=== PATIENT | female | born 1990 | race African-American/Black ===

== ENCOUNTER 2016-08-15 18:42 | Emergency (ER) | payer OTHER ==
[2016-08-15] MEDS ORDERED: HYDROmorphone 1 MG/ML SYRINGE IVP STA (19:50)
[2016-08-15] MEDS ORDERED: HYDROmorphone 1 MG/ML SYRINGE ONE (21:05)
[2016-08-15] MEDS ORDERED: IOPAMIDOL-300 100 ML VIAL IVP ONE (21:17)
== END 2016-08-15 22:22 | disposition home or self-care (01) ==
DX: R10.2 Pelvic and perineal pain (principal); Z97.5 Presence of (intrauterine) contraceptive device; Z86.711 Personal history of pulmonary embolism; Z79.01 Long term (current) use of anticoagulants
CPT/HCPCS: 36415; 74177; 80053; 83690; 85025; 85610; 96374; 99283; 99284; J1170; Q9967

== ENCOUNTER 2017-01-20 10:41 | Emergency (ER) | payer OTHER ==
--- NOTE | 2017-01-20 11:50 | ED Physician Documentation ---
PD HPI GI BLEED - Stated complaint Stated Complaint: BLOOD IN STOOL - Chief complaint Chief Complaint: Abd Pain - History obtained from History obtained from: Patient - History of Present Illness Timing - onset: Last night Timing - duration: Days (1/2) Timing - details: Abrupt onset Associated symptoms: BRBPR (noted some diarrhea few times, then had some traces of blood and mucous in stool last few times. Cramping abd pain intermittently.) , Diarrhea. No: Vomiting Contributing factors: No: Sick contact, Bad food, Travel, Recent antibiotics, NSAID use Improved by: No: Eating, Position Worsened by: Eating (made her more nauseated). No: Position, Palpation Similar symptoms before: Has not had sx before Recently seen: Not recently seen Review of Systems Constitutional: denies: Fever, Chills Nose: denies: Rhinorrhea / runny nose, Congestion Throat: denies: Sore throat Respiratory: denies: Cough GI: reports: Abdominal Pain (intermittent cramping), Nausea, Diarrhea, Bloody / black stool. denies: Vomiting, Constipation : denies: Dysuria, Frequency, Discharge Skin: denies: Rash, Lesions Neurologic: reports: Generalized weakness. denies: Near syncope PD PAST MEDICAL HISTORY - Past Medical History Cardiovascular: Pulmonary embolism (when on control. Not any continued anticoagulants) Respiratory: Asthma, Other Neuro: None Endocrine/Autoimmune: None GI: None : Chronic bladder infection HEENT: None Psych: Anxiety Musculoskeletal: None Derm: Eczema - Past Surgical History Past Surgical History: Yes General: Other - Present Medications Home Medications: Ambulatory Orders Medication Instructions Recorded Confirmed Diphenoxylate/Atropine [Lomotil] 1 each PO QID PRN #15 tablet 01/20/17 Ondansetron Odt [Zofran] 4 mg TL Q6H PRN #15 tablet 01/20/17 Tramadol HCl 50 mg PO Q6H PRN #15 tablet 01/20/17 - Allergies Allergies/Adverse Reactions: Allergies Allergy/AdvReac Type Severity Reaction Status Date / Time Sulfa (Sulfonamide Allergy Hives Verified 02/15/16 03:15 Antibiotics) morphine AdvReac Hives Verified 02/15/16 03:15 - Social History Does the pt smoke?: No Smoking Status: Never smoker Does the pt drink ETOH?: Yes Does the pt have substance abuse?: No - Family History Family history: reports: Non contributory - Immunizations Immunizations are current?: No - POLST Patient has POLST: No PD ED PE NORMAL - Vitals Vital signs reviewed: Yes - General General: Alert and oriented X 3, No acute distress, Well developed/nourished - HEENT HEENT: PERRL (nonicteric), Pharynx benign - Neck Neck: Supple, no meningeal sign, No adenopathy - Cardiac Cardiac: RRR, No murmur - Respiratory Respiratory: Clear bilaterally - Abdomen Abdomen: Soft, Non tender, Non distended, No organomegaly. No: Normal bowel sounds (increased) - Female Female : Deferred - Rectal Rectal: Deferred - Back Back: No CVA TTP - Derm Derm: Normal color, Warm and dry - Extremities Extremities: No tenderness to palpate, Normal ROM s pain, No edema, No calf tenderness / cord - Neuro Neuro: Alert and oriented X 3, No motor deficit, Normal speech Results - Vitals Vitals: Vital Signs - 24 hr 01/20/17 01/20/17 01/20/17 10:46 12:47 13:33 Temperature 36.4 C L Heart Rate 87 63 62 Respiratory 20 16 16 Rate Blood Pressure 130/86 H 113/71 118/74 O2 Saturation 98 98 100 Oxygen O2 Source Room air - Labs Labs: Laboratory Tests 01/20/17 01/20/17 01/20/17 11:30 11:30 11:30 WBC 9.4 RBC 4.88 Hgb 15.0 Hct 43.3 MCV 88.7 MCH 30.8 MCHC 34.7 RDW 13.3 Plt Count 225 MPV 8.5 Neut # 6.8 H Lymph # 1.9 [place]imer # 0.5 Eos # 0.1 Baso # 0.0 Absolute Nucleated RBC 0.01 Nucleated RBCs 0.1 ESR 12 Sodium 135 Potassium 4.2 Chloride 101 Carbon Dioxide 26 Anion Gap 8.0 BUN 9 Creatinine 0.7 Estimated GFR (MDRD) 125 Glucose 96 Lactic Acid Calcium 9.8 Total Bilirubin 1.0 AST 22 ALT 21 Alkaline Phosphatase 68 Total Protein 8.3 H Albumin 4.3 Globulin 4.0 Albumin/Globulin Ratio 1.1 Lipase 19 L Urine Color Urine Clarity Urine pH Ur Specific [place] Urine Protein Urine Glucose (UA) Urine Ketones Urine Occult Blood Urine Nitrite Urine Bilirubin Urine Urobilinogen Ur Leukocyte Esterase Ur Microscopic Review Urine Culture Comments Urine HCG, Qual 01/20/17 01/20/17 01/20/17 12:14 12:14 12:30 WBC RBC Hgb Hct MCV MCH MCHC RDW Plt Count MPV Neut # Lymph # [place] # Eos # Baso # Absolute Nucleated RBC Nucleated RBCs ESR Sodium Potassium Chloride Carbon Dioxide Anion Gap BUN Creatinine Estimated GFR (MDRD) Glucose Lactic Acid 0.7 Calcium Total Bilirubin AST ALT Alkaline Phosphatase Total Protein Albumin Globulin Albumin/Globulin Ratio Lipase Urine Color YELLOW Urine Clarity CLEAR Urine pH 7.5 Ur Specific [place] 1.015 1.015 Urine Protein NEGATIVE Urine Glucose (UA) NEGATIVE Urine Ketones NEGATIVE Urine Occult Blood NEGATIVE Urine Nitrite NEGATIVE Urine Bilirubin NEGATIVE Urine Urobilinogen 0.2 (NORMAL) Ur Leukocyte Esterase NEGATIVE Ur Microscopic Review NOT INDICATED Urine Culture Comments NOT INDICATED Urine HCG, Qual NEGATIVE PD MEDICAL DECISION MAKING - ED course Complexity details: reviewed results (normal blood count and then normal WBC, ESR, lactate, so I don't think it is as bad as Crohns, ischemic bowel, significant infection. Presume viral GE for now but to recheck if not better in a couple days. ), considered differential, d/w patient Departure - Departure Disposition: Home, Self Care Clinical Impression: Nausea vomiting and diarrhea, Blood in stool Condition: Stable Record reviewed to determine appropriate education?: Yes Instructions: ED Diet Vomiting Diarrhea Follow-Up: Stuart Ho ARNP [Primary Care Provider] - Prescriptions: Diphenoxylate/Atropine [Lomotil] 1 each PO QID PRN #15 tablet PRN Reason: Diarrhea Tramadol HCl 50 mg PO Q6H PRN #15 tablet PRN Reason: Pain Ondansetron Odt [Zofran] 4 mg TL Q6H PRN #15 tablet PRN Reason: Nausea / Vomiting Comments: Rest and small fluids today. Start with bland food such as starches (rice, cereal, pasta, breads) and progress as able. Zofran if needed for nausea. Lomotil for diarrhea as needed. Use Tylenol or Tramadol as needed for pains. Recheck if not improved over the next day or so. Follow up PMD to consider if should get sigmoidoscope or such in the future or just assume the blood/mucous is from viral infection or such. If the diarrhea persists more than another 1-2 days, then bring sample of it to your PMD for culture/studies. Return if worse again. Discharge Date/Time: 01/20/17 13:34
[2017-01-20] MEDS ORDERED: KETOROLAC 60 MG/2 ML VIAL IVP STA (12:07)
[2017-01-20] MEDS ORDERED: ONDANSETRON 4 MG/2 ML VIAL IVP STA (12:07)
[2017-01-20] MEDS ORDERED: SODIUM CHLORIDE 0.9% 1,000 ML IV ONE ×2 (12:07→12:13)
[2017-01-20] MEDS ORDERED: DIPHENOX/ATROPINE 2.5/0.025 MG TABLET PO STA (12:09)
[2017-01-20] MEDS ORDERED: KETOROLAC 30 MG/ML VIAL ONE (12:12)
[2017-01-20] MEDS ORDERED: DIPHENOX/ATROPINE 2.5/0.025 MG TABLET PO ONE (12:12)
[2017-01-20] MEDS ORDERED: ONDANSETRON 4 MG/2 ML VIAL ONE (12:13)
[2017-01-20 12:22] LABS: BASOPHILS % (AUTO) 0.4 %; EOSINOPHILS # (AUTO) 0.1 10^3/uL (0.0-0.7); EOSINOPHILS % (AUTO) 1.5 %; HCT - HEMATOCRIT 43.3 % (37.0-47.0); LYMPHOCYTES # (AUTO) 1.9 10^3/uL (1.5-3.5); LYMPHOCYTES % (AUTO) 20.7 %; MEAN CORPUSCULAR HEMOGLOBIN 30.8 pg (27.0-31.0); MEAN CORPUSCULAR HGB CONC 34.7 g/dL (32.0-36.0); MEAN CORPUSCULAR VOLUME 88.7 fL (81.0-99.0); MEAN PLATELET VOLUME 8.5 fL (7.9-10.8); MONOCYTES # (AUTO) 0.5 10^3/uL (0.0-1.0); MONOCYTES % (AUTO) 5.1 %; NEUTROPHILS # (AUTO) 6.8 10^3/uL (1.5-6.6); NEUTROPHILS % (AUTO) 72.3 %; NUCLEATED RED BLOOD CELLS AUTO 0.1 /100WBC; RED BLOOD COUNT 4.88 10^6/uL (4.20-5.40); RED CELL DISTRIBUTION WIDTH 13.3 % (12.0-15.0); UNCORRECTED WHITE BLOOD COUNT 9.4 x10^3/uL; WHITE BLOOD COUNT 9.4 x10^3/uL (4.8-10.8)
[2017-01-20 12:24] LABS: BILIRUBIN,URINE NEGATIVE (NEGATIVE); PH,URINE 7.5 PH (5.0-7.5); UA CHARGE (STRIP ONLY) YES; UR CULTURE IF IND NOT INDICATED
[2017-01-20 12:37] LABS: ALBUMIN/GLOBULIN RATIO 1.1 (1.0-2.2); CALCIUM 9.8 mg/dL (8.5-10.3); CREATININE 0.7 mg/dL (0.4-1.0); POTASSIUM 4.2 mmol/L (3.5-5.0); TOTAL PROTEIN 8.3 g/dL (6.7-8.2)
[2017-01-20 13:17] LABS: HCG UR QUAL NEGATIVE
[2017-01-20 13:34] VITALS: BP 118/74
== END 2017-01-20 13:34 | disposition home or self-care (01) ==
LOC: ED 10:41
DX: K92.1 Melena (principal); R11.2 Nausea with vomiting, unspecified; R19.7 Diarrhea, unspecified
CPT/HCPCS: 36415; 80053; 81003; 81025; 83605; 83690; 85025; 85651; 96374; 96375; 99283; 99284; A9270; 81001; 87086